=== PATIENT | female | born 1960 | race Caucasian/White ===

== ENCOUNTER → 2018-09-16 | Outpatient (CLI) | payer BC, OTHER ==
--- NOTE | 2018-09-18 08:25 | RADIOLOGY IMAGING REPORT ---
FACILITY: [facility] PATIENT NAME: GARRY JUARES : [id number] MR: [id number] V: [id number] EXAM DATE: ORDERING PHYSICIAN: YOSELIN HAMILTON TECHNOLOGIST: Diana Maxwell PROCEDURE:BILATERAL DIGITAL SCREENING MAMMOGRAM WITH CAD ASSISTED INTERPRETATION & 3D TOMOSYNTHESIS COMPARISON:Prior mammograms 04/10/16, 04/06/15, 11/17/13. INDICATIONS:screening FINDINGS: The breasts are heterogeneously dense which can obscure small masses. Most of the parenchymal pattern has remained stable allowing for difference in mammographic technique & patient positioning. In the upper portion of the Left breast on the Left MLO view in the posterior 1/3 there is a small asymmetry for which Spot compression view is recommended. This is best appreciated on Tomographic slice 49. DIAGNOSTIC CATEGORY 0--INCOMPLETE: NEED ADDITIONAL IMAGING EVALUATION. RECOMMENDATIONS: ADDITIONAL MAMMOGRAPHIC VIEWS REQUIRED: LEFT BREAST. IMPRESSION: BIRADS 0: Incomplete. Additional views of the Left breast recommended. Dictated by: Luly Boyer M.D. on 09/16/2018 at 17:19 Transcribed by: ERNESTO on 09/17/2018 at 9:51 Approved by: Luly Boyer M.D. on 09/18/2018 at 8:23 [facility]
== END ==
LOC: MAMO 01:17
PROVIDERS: ATTEND Physician Assistant
DX: R92.2 Inconclusive mammogram (principal)
CPT/HCPCS: 77063; 77067

== ENCOUNTER → 2018-10-01 | Outpatient (CLI) | payer BC ==
--- NOTE | 2018-10-03 14:12 | RADIOLOGY IMAGING REPORT ---
[place] [facility] [place] NAME: GARRY JUARES : [id number] MR: [id number] V: [id number] EXAM DATE: ORDERING PHYSICIAN: YOSELIN HAMILTON TECHNOLOGIST: Mell Diaz PROCEDURE:LEFT DIGITAL MAMMOGRAM DIAGNOSTIC WITH CAD ASSISTED INTERPRETATION & 3D TOMOSYNTHESIS REASON FOR STUDY: Further evaluation FAMILY HISTORY OF BREAST CANCER: None BREAST PROCEDURES/TREATMENTS: None COMPARISON STUDIES: 09/16/18, 04/10/16, 04/06/15, 11/17/13 MAMMOGRAM VIEWS OBTAINED: The patient received a single Left 2D & 3D focal compression view in the Left MLO projection. BREAST DENSITY: The breasts are heterogeneously dense which may obscure small masses. MAMMOGRAM FINDINGS: The small asymmetry in the upper portion of the Left breast appears to be compressible with the spot compression view & apparently represents a summation shadow. ASSESSMENT: BIRADS 2: Benign finding. DIAGNOSTIC CATEGORY 2--BENIGN FINDING. RECOMMENDATIONS: ROUTINE MAMMOGRAM AND CLINICAL EVALUATION. Dictated by: Luly Boyer M.D. on 10/01/2018 at 13:59 Transcribed by: MEL on 10/03/2018 at 11:34 Approved by: Luly Boyer M.D. on 10/03/2018 at 14:11 [facility]
== END ==
LOC: MAMO 00:48
PROVIDERS: ATTEND Physician Assistant
DX: R92.8 Other abnormal and inconclusive findings on diagnostic imaging of breast (principal)
CPT/HCPCS: 77061; 77065